=== PATIENT | female | born 1940 | race Caucasian/White ===

== ENCOUNTER → 2024-12-09 | Outpatient (CLI) | payer MEDICARE, BC ==
[2024-12-09 10:36] VITALS: BP 140/84; PULSE 84; RESP 19; TEMP 97.5
--- NOTE | 2024-12-09 14:21 | P.PAINPG ---
Objective - Vital Signs Vital signs: Intake & Output 12/08/24 12/09/24 12/09/24 18:59 06:59 18:59 Weight 92.079 kg PQRS Measure Charge Sheet Comment: HISTORY OF PRESENT ILLNESS: A 84 yr old female w at side as a referral from Kevin Rowe [facility] presents today w severe and chronic thoracolumbar pain > 5 yrs secondary to radiculopathy, spondylosis and facet arthropathy without myelopathy for evaluation. Pt states pain level is provoked at 8 /10 in intensity, constant, localized in the lumbar spine, predominantly axial, achy in character w occasional shooting pain towards the LEs. Pain is provoked by PT x 3-4 wks which ended in Sep 2024, walking/ standing for periods > 10 min. Pain is alleviated by physician guided home stretches daily since Sep 2024, heat, ice, medications, topical, repositioning and rest . Oswestry axial pain score at 36. PMH: OA, HTN, Hyperlipidemia, Anxiety PSH: L Meniscal Repair, Hysterectomy (2023) SH: Daily tobacco use, No ETOH abuse, No illicit drug use FH: Non contributory All: See list Meds: See list incl Almond, Tyl, Naproxen, BioFreeze Gel REVIEW OF ORGAN SYSTEMS: CONSTITUTIONAL: No fevers or chills. No recent weight loss. NEUROLOGICAL: + numbness and tingling along the distal extremities. No seizure disorders or headaches. MUSCULOSKELETAL: + pain PSYCHIATRIC: Denies current depression or suicidal thoughts. Physical Examinations : Constitutional : Cooperative , not in acute distress . Neurologic : Cranial nerve II to XII intact. No focal neurological deficits. Psychiatric : alert & oriented x 3. Matching mood & appropriate affect. Judgment & insight intact. Musculoskeletal : Cervical Spine Motor strength in the deltoid and biceps: Normal right side. Normal Left side Motor strength biceps and the wrist extensors: Normal right side . Normal left side Motor strength in the triceps muscle: Normal right side. Normal left side Deep tendon reflexes: Normal at the biceps. Normal at Brachioradialis. Normal at triceps Vertebral body tenderness to deep palpation over Cervical facet loading test: positive b ilaterally Spurling test: positive bilaterally Neck distraction test: positive bilaterally Paige sign: positive bilaterally Lumbar spine Motor strength lower extremities ,thigh and legs 5/5 Right side , 5/5 Left side Deep tendon reflexes : Normal Knee Jerk. Normal Ankle Jerk Vertebral body tenderness over Watts Test positive BL L4-L5 Lumbar facet Loading Test: positive Right / positive Left Range of motion of the lumbar spine Flexion 30 degrees, extension 10 degrees Straight Leg Raise test: Left/ Right positive at >30 degrees Karan test: positive right / positive left. Severe tenderness over the Sacroiliac joint on the Right / Left sides Gaenslen test: positive bilaterally Seated flexion test: positive bilaterally. Sacral spine : Severe tenderness over the Sacroiliac joint: right side / left side Range of motion: Flexion of the lumbar spine <60 degrees Range of motion: Extension of the lumbar spine <20 degrees Gaenslen's Test positive Karan test: positive right side / left side Thigh Thrust Test Sacral Thrust Test Imaging: CT non contrast of the thoracolumbar spine from 11/24/23 reviewed Assessment/ Plan : Lumbar scoliosis, L4-L5 anterolisthesis, T11 fracture Recommendation of PARRIS L4-L5 #1. Risks, benefits of procedure discussed and patient verbalized understanding. Admits to anti- coagulant use or medical history of diabetes. Protocol for discontinuation/ continuation of medications royal procedure discussed. All questions answered. I have spent greater than 30 minutes on patient care today. Dr Porter was available by phone for the evaluation of this patient. The time was used to review the medical records including relevant urine studies and Prescription history (MAPs), review of the available imaging, evaluation and examination of the patient, coordination of care with the medical staff and if applicable referring physicians, as well as creation of the medical record Controlled Substance Measures - Controlled Substance Measures Is patient prescribed a controlled substance at discharge?: Yes When asked, does pt state using other controlled substances?: No If prescribed controlled substance>3 days was MAPS reviewed?: Prescribed <3 Days
== END ==
LOC: PNWHC3 09:56
PROVIDERS: ATTEND Specialist
DX: S22.089A Unspecified fracture of T11-T12 vertebra, initial encounter for closed fracture (principal); M43.16 Spondylolisthesis, lumbar region; M47.16 Other spondylosis with myelopathy, lumbar region; Z88.1 Allergy status to other antibiotic agents; X58.XXXA Exposure to other specified factors, initial encounter
CPT/HCPCS: 99211

== ENCOUNTER → 2024-12-24 | Day surgery (SDC) | payer MEDICARE, BC ==
[~2024-12-24] MED LIST: IOPAMIDOL M200 10 ML VIAL ONE; LACTATED RINGERS 1,000 ML IV SCH; methylPREDNISolone ACETATE 80 MG/ML 1 ML VIAL ONE
[2024-12-24 11:57] VITALS: TEMP 98.1
[2024-12-24] MEDS: IV FLUID CONTINUATION 1,000 ML IV ONE (13:24)
--- NOTE | 2024-12-24 13:25 | P.PCN ---
Description of Procedure: PREOPERATIVE DIAGNOSIS: 1- Lumbar Degenerative Disc Diseases 2-Lumbar spondylosis with Facet arthropathy without myelopathy. 3-lumbar spinal stenosis POSTOPERATIVE DIAGNOSIS: 1-lumbar degenerative disc disease. 2-lumbar spondylosis with facet arthropathy without myelopathy. 3-lumbar spinal stenosis. PROCEDURE Injection of radio contrast material into L4-5 interspace, interpretation of epidurogram, injection of steroid at L4- 5 epidural space under fluoroscopic guidance. ANESTHESIA: Lidocaine 1% subcutaneously. In OR continuous pulse ox, EKG, blood pressure and verbal communication was maintained with the patient. EBL: Minimal PROCEDURE INDICATION: Before the procedure were discussed with the patient detailed procedure, alternatives, complications including infection, bleeding, nerve damage, paralysis all of which could be permanent. Patient understands and all questions were answered. PROCEDURE DESCRIPTION : After getting consent, patient in OR in prone position. Back was prepped with chlorhexidine and draped in sterile fashion. After injecting 10 mL of 1% lidocaine subcutaneously, a 20-gauge Tuohy needle was introduced at L4 5 interspace with loss of resistance technique using a syringe filled with air. Negative CSF, negative blood, negative paresthesia. Needle position was confirmed with AP and lateral view of the fluoroscope. After repeat negative aspiration 2 mL of Omnipaque 200 water soluble contrast was injected. Contrast was noted in the epidural space. No contrast was noted into intrathecal or intravascular space. After repeat negative aspiration 6 mL solution was injected intermittently which consists of 5 mL of preservative-free normal saline mixed with 1 mL of 80 mg Depo-Medrol. Needle was withdrawn intact. Skin was cleansed and Band-Aids was applied. DISPOSITION / PLANS: The patient tolerated the procedure well. No complication. The patient was placed in a supine position and transferred to the recovery area in a stable condition for observation. There was no evidence of lower extremity motor or sensory deficit after the procedure. Patient was discharged from the recovery room after meeting discharge criteria. Home discharge instructions were given to the patient by the staff. The patient was reexamined prior to discharge. The patient will schedule a follow up in the clinic in 2-4 weeks.
[2024-12-24 13:26] VITALS: RESP 16
[2024-12-24 13:44] VITALS: BP 157/89; PULSE 78
--- NOTE | 2024-12-24 18:17 | FL ---
EXAMINATION TYPE: FL guided pain mgmt statistic DATE OF EXAM: 12/24/2024 FLUOROSCOPY Lumbar Epid Inj 12sec fluoro time .[id number] DAP One image is submitted. Dr. Stacy Addison [facility], Workstation: [facility], 12/24/2024 6:15 PM
== END ==
LOC: ORPAIN 11:09
PROVIDERS: ATTEND Pain Medicine Interventional Pain Medicine
DX: M54.15 Radiculopathy, thoracolumbar region (principal); M51.369 Other intervertebral disc degeneration, lumbar region without mention of lumbar back pain or lower extremity pain; M47.816 Spondylosis without myelopathy or radiculopathy, lumbar region; M48.061 Spinal stenosis, lumbar region without neurogenic claudication
CPT/HCPCS: 62323; Q9966; J1010

== ENCOUNTER → 2025-01-19 | Outpatient (CLI) | payer MEDICARE, BC ==
[2025-01-19 10:44] VITALS: BP 169/97; PULSE 82; RESP 16; TEMP 97.1
--- NOTE | 2025-01-19 15:54 | P.PAINPG ---
Objective - Vital Signs Vital signs: Intake & Output 01/18/25 01/19/25 01/19/25 18:59 06:59 18:59 Weight 92.079 kg PQRS Measure Charge Sheet Comment: HISTORY OF PRESENT ILLNESS: A 84 yr old female w at side presents today w severe and chronic thoracolumbar pain > 5 yrs secondary to radiculopathy, spondylosis and facet arthropathy without myelopathy for evaluation s/p PARRIS L4-L5 #1. Pt states she experienced 50 % pain relief x 2-3 wks s/p procedure. Pt states pain level is provoked at 5-9 /10 in intensity, constant, localized in the lumbar spine, predominantly axial, achy in character w occasional shooting pain towards the LEs. Pain is provoked by PT x 3-4 wks which ended in Sep 2024, walking/ standing for periods > 10 min. Pain is alleviated by physician guided home stretches daily since Sep 2024, heat, ice, medications, topical, use of a lumbar support brace, repositioning and rest . Oswestry axial pain score at 36. Interventional procedures include APRRIS L4-L5 x1 Medications include [place], Tyl, Naproxen, BioFreeze Gel REVIEW OF ORGAN SYSTEMS: CONSTITUTIONAL: No fevers or chills. No recent weight loss. NEUROLOGICAL: + numbness and tingling along the distal extremities. No seizure disorders or headaches. MUSCULOSKELETAL: + pain PSYCHIATRIC: Denies current depression or suicidal thoughts. Physical Examinations : Constitutional : Cooperative , not in acute distress . Neurologic : Cranial nerve II to XII intact. No focal neurological deficits. Psychiatric : alert & oriented x 3. Matching mood & appropriate affect. Judgment & insight intact. Musculoskeletal : Cervical Spine Motor strength in the deltoid and biceps: Normal right side. Normal Left side Motor strength biceps and the wrist extensors: Normal right side . Normal left side Motor strength in the triceps muscle: Normal right side. Normal left side Deep tendon reflexes: Normal at the biceps. Normal at Brachioradialis. Normal at triceps Vertebral body tenderness to deep palpation over Cervical facet loading test: positive bilaterally Spurling test: positive bilaterally Neck distraction test: positive bilaterally Paige sign: positive bilaterally Lumbar spine Motor strength lower extremities ,thigh and legs 5/5 Right side , 5/5 Left side Deep tendon reflexes : Normal Knee Jerk. Normal Ankle Jerk Vertebral body tenderness over Watts Test positive BL L4-L5 Lumbar facet Loading Test: positive Right / positive Left Range of motion of the lumbar spine Flexion 30 degrees, extension 10 degrees Straight Leg Raise test: Left/ Right positive at >30 degrees Karan test: positive right / positive left. Severe tenderness over the Sacroiliac joint on the Right / Left sides Gaenslen test: positive bilaterally Seated flexion test: positive bilaterally. Sacral spine : Severe tenderness over the Sacroiliac joint: right side / left side Range of motion: Flexion of the lumbar spine <60 degrees Range of motion: Extension of the lumbar spine <20 degrees Gaenslen's Test positive Karan test: positive right side / left side Thigh Thrust Test Sacral Thrust Test Imaging: CT non contrast of the thoracolumbar spine from 11/24/23 reviewed Assessment/ Plan : Lumbar scoliosis, L4-L5 anterolisthesis, T11 fracture Recommendation of BL TFESI L4-L5 #1. Risks, benefits of procedure discussed and patient verbalized understanding. Admits to anti- coagulant use or medical history of diabetes. Protocol for discontinuation/ continuation of medications royal procedure discussed. All questions answered. I have spent greater than 30 minutes on patient care today. Dr Porter was available by phone for the evaluation of this patient. The time was used to review the medical records including relevant urine studies and Prescription history (MAPs), review of the available imaging, evaluation and examination of the patient, coordination of care with the medical staff and if applicable referring physicians, as well as creation of the medical record PQRS Narrative: Hx Alcohol Use (MH) No Home Medications: Ambulatory Orders ALPRAZolam [Xanax] 0.5 mg PO Q6H PRN 12/22/24 Rosuvastatin Calcium 5 mg PO 1030 12/22/24 Controlled Substance Measures - Controlled Substance Measures Is patient prescribed a controlled substance at discharge?: No
== END ==
LOC: PNWHC3 10:10
PROVIDERS: ATTEND Specialist
DX: M41.86 Other forms of scoliosis, lumbar region (principal); M43.16 Spondylolisthesis, lumbar region; S22.089A Unspecified fracture of T11-T12 vertebra, initial encounter for closed fracture; M47.26 Other spondylosis with radiculopathy, lumbar region; Z88.1 Allergy status to other antibiotic agents
CPT/HCPCS: 99211

== ENCOUNTER → 2025-03-02 | Outpatient (CLI) | payer MEDICARE, BC ==
[2025-03-02 11:08] VITALS: BP 169/89; PULSE 68; RESP 18
--- NOTE | 2025-03-02 16:14 | P.PAINPG ---
Objective - Vital Signs Vital signs: Intake & Output 03/01/25 03/02/25 03/02/25 18:59 06:59 18:59 Weight 92.079 kg PQRS Measure Charge Sheet Comment: HISTORY OF PRESENT ILLNESS: A 84 yr old female w at side presents today w severe and chronic thoracolumbar pain > 5 yrs secondary to radiculopathy, spondylosis and facet arthropathy without myelopathy for evaluation s/p BL TFESI L4-L5 #1. Pt states she experienced 50 % pain relief x 3-4 wks s/p procedure. She has been doing more home chores since the injection. Pt states pain level is provoked at 1 /10 in intensity, constant, localized in the lumbar spine, predominantly axial, achy in character w occasional shooting pain towards the LEs. Pain is provoked by PT x 3-4 wks which ended in Sep 2024, walking/ standing for periods > 10 min. Pain is alleviated by physician guided home stretches daily since Sep 2024, heat, ice, medications, topical, use of a lumbar support brace, repositioning and rest . Oswestry axial pain score at 36. Interventional procedures include PARRIS L4-L5 x1, BL TFESI L4-L5 x1 (01/30) Medications include [place], Tyl, Naproxen, BioFreeze Gel REVIEW OF ORGAN SYSTEMS: CONSTITUTIONAL: No fevers or chills. No recent weight loss. NEUROLOGICAL: + numbness and tingling along the distal extremities. No seizure disorders or headaches. MUSCULOSKELETAL: + pain PSYCHIATRIC: Denies current depression or suicidal thoughts. Physical Examinations : Constitutional : Cooperative , not in acute distress . Neurologic : Cranial nerve II to XII intact. No focal neurological deficits. Psychiatric : alert & oriented x 3. Matching mood & appropriate affect. Judgment & insight intact. Musculoskeletal : Cervical Spine Motor strength in the deltoid and biceps: Normal right side. Normal Left side Motor strength biceps and the wrist extensors: Normal right side . Normal left side Motor strength in the triceps muscle: Normal right side. Normal left side Deep tendon reflexes: Normal at the biceps. Normal at Brachioradialis. Normal at triceps Vertebral body tenderness to deep palpation over Cervical facet loading test: positive bilaterally Spurling test: positive bilaterally Neck distraction test: positive bilaterally Paige sign: positive bilaterally Lumbar spine Motor strength lower extremities ,thigh and legs 5/5 Right side , 5/5 Left side Deep tendon reflexes : Normal Knee Jerk. Normal Ankle Jerk Vertebral body tenderness over Watts Test positive BL L4-L5 Lumbar facet Loading Test: positive Right / positive Left Range of motion of the lumbar spine Flexion 30 degrees, extension 10 degrees Straight Leg Raise test: Left/ Right positive at >30 degrees Karan test: positive right / positive left. Severe tenderness over the Sacroiliac joint on the Right / Left sides Gaenslen test: positive bilaterally Seated flexion test: positive bilaterally. Sacral spine : Severe tenderness over the Sacroiliac joint: right side / left side Range of motion: Flexion of the lumbar spine <60 degrees Range of motion: Extension of the lumbar spine <20 degrees Gaenslen's Test positive Karan test: positive right side / left side Thigh Thrust Test Sacral Thrust Test Imaging: CT non contrast of the thoracolumbar spine from 11/24/23 reviewed Assessment/ Plan : Lumbar scoliosis, L4-L5 anterolisthesis, T11 fracture Will follow up w PT and RTC on an as needed basis. All questions answered. I have spent greater than 30 minutes on patient care today. Dr Porter was available by phone for the evaluation of this patient. The time was used to review the medical records including relevant urine studies and Prescription history (MAPs), review of the available imaging, evaluation and examination of the patient, coordination of care with the medical staff and if applicable referring physicians, as well as creation of the medical record PQRS Narrative: Hx Alcohol Use (MH) No Home Medications: Ambulatory Orders ALPRAZolam [Xanax] 0.5 mg PO Q6H PRN 12/22/24 Rosuvastatin Calcium 5 mg PO 1030 12/22/24 Acetaminophen Tab [Tylenol] 650 mg PO DIRECTED PRN 02/02/25 Controlled Substance Measures - Controlled Substance Measures Is patient prescribed a controlled substance at discharge?: No
== END ==
LOC: PNWHC3 10:10
PROVIDERS: ATTEND Specialist
DX: S22.089A Unspecified fracture of T11-T12 vertebra, initial encounter for closed fracture (principal); M43.16 Spondylolisthesis, lumbar region; M41.86 Other forms of scoliosis, lumbar region; Z88.1 Allergy status to other antibiotic agents; X58.XXXA Exposure to other specified factors, initial encounter
CPT/HCPCS: 99212